=== PATIENT | female | born 1965 | race Caucasian/White ===

== ENCOUNTER 2017-12-30 18:44 | Emergency (ER) | payer BC, MEDICAID, OTHER ==
[2017-12-30] MEDS ORDERED: Ketorolac 60 MG/2 ML SDV IM ONE (19:11)
[2017-12-30] MEDS ORDERED: Amoxicillin 500 MG Cap PO ONE (19:12)
--- NOTE | 2017-12-30 19:18 | EDM.PDOC ---
ED HPI GENERAL MEDICAL PROBLEM - General Chief Complaint: ENT Problem Stated Complaint: TOOTH PAIN Time Seen by Provider: 12/30/17 18:55 Source of Information: Reports: Patient History Limitations: Reports: No Limitations - History of Present Illness INITIAL COMMENTS - FREE TEXT/NARRATIVE: c/o dental pain lived in [place] untll 1m ago, worked at [employer] on her feet x 2w saw a dentist 1w ago, had no insurance to pull 2 teeth, is working on getting public dental insurance inc'd pain at teeth #27,28 - Related Data Allergies Allergy/AdvReac Type Severity Reaction Status Date / Time No Known Allergies Allergy Verified 12/30/17 19:10 Home Meds: Home Meds Amoxicillin 500 mg PO TID #21 tab 12/30/17 [Rx] ED ROS ENT - Review of Systems Review Of Systems: See Below Constitutional: Reports: No Symptoms HEENT: Reports: Dental Pain Respiratory: Reports: No Symptoms Endocrine: Reports: No Symptoms GI/Abdominal: Reports: No Symptoms : Reports: No Symptoms Musculoskeletal: Reports: No Symptoms Skin: Reports: No Symptoms Neurological: Reports: No Symptoms Psychiatric: Reports: No Symptoms Hematologic/Lymphatic: Reports: No Symptoms Immunologic: Reports: No Symptoms ED EXAM, ENT - Physical Exam Exam: See Below Exam Limited By: No Limitations General Appearance: Alert, WD/WN, Mild Distress Nose: Normal Inspection, Normal Mucousa, No Blood Mouth/Throat: Other (dentures up, very poor dentition down, 1+ tender at tooth # 27 & 28, no LNs, gum with hypertrophy under #28 and inc'd sensitivity to palpation) Head: Atraumatic, Normocephalic Neck: Normal Inspection, Supple, Non-Tender, Full Range of Motion Respiratory/Chest: No Respiratory Distress Cardiovascular: Regular Rate, Rhythm Course - Orders/Labs/Meds Orders: Active Orders 24 hr Category Date Time Status Amoxicillin [Amoxil] Med 12/30/17 19:12 Once 500 mg PO ONETIME ONE Ketorolac [Toradol] Med 12/30/17 19:11 Once 60 mg IM ONETIME ONE Departure - Departure Time of Disposition: 19:12 Disposition: Home, Self-Care 01 Condition: Good Clinical Impression: Dental caries, Dental abscess, Gingivitis - Discharge Information *PRESCRIPTION DRUG MONITORING PROGRAM REVIEWED*: Not Applicable *COPY OF PRESCRIPTION DRUG MONITORING REPORT IN PATIENT JEFF: Not Applicable Prescriptions: Amoxicillin 500 mg PO TID #21 tab Instructions: Dental Abscess Referrals: Adan Bailey MD [Primary Care Provider] - Additional Instructions: For infection, take amoxicillin 500 mg 1 tab 3 times a day for 7 days. For pain and inflammation, take ibuprofen 200 mg 3 tabs and acetaminophen 500 mg 2 tabs 4 times a day. See your dentist in the next week for definitive treatment. - My Orders Last 24 Hours: My Active Orders 12/30/17 19:11 Ketorolac [Toradol] 60 mg IM ONETIME ONE 12/30/17 19:12 Amoxicillin [Amoxil] 500 mg PO ONETIME ONE - Assessment/Plan Last 24 Hours: My Active Orders 12/30/17 19:11 Ketorolac [Toradol] 60 mg IM ONETIME ONE 12/30/17 19:12 Amoxicillin [Amoxil] 500 mg PO ONETIME ONE
== END 2017-12-30 19:50 | disposition home or self-care (01) ==
LOC: FB.ED 18:44
DX: K04.7 Periapical abscess without sinus (principal); K02.7 Dental root caries; K05.10 Chronic gingivitis, plaque induced; Z87.891 Personal history of nicotine dependence
CPT/HCPCS: 96372; 99282; A9270; J1885